=== PATIENT | male | born 1960 | race Caucasian/White ===

== ENCOUNTER 2019-07-20 13:06 | Day surgery (SDC) | payer OTHER ==
[2019-07-16 16:06] VITALS: BMI 29.8
[~2019-07-20 13:06] MED LIST: ACETAMINOPHEN 325 MG TABLET (FP) PO PRN; ONDANSETRON 4 MG/2 ML VIAL IVPUSH PRN; oxyCODONE HCL 5 MG TABLET PO PRN
[2019-07-20] MEDS ORDERED: PROPOFOL 20 ML ONE (14:31)
[2019-07-20] MEDS ORDERED: MIDAZOLAM HCL 2 MG/2 ML SINGLE DOSE VIAL ONE (14:31)
[2019-07-20] MEDS ORDERED: DEXAMETHASONE SOD PHOSPHATE 4 MG/1 ML VIAL ONE (14:43)
--- NOTE | 2019-07-20 15:40 | OP ---
Operative Note - Note: Operative Date: 07/20/19 Pre-Operative Diagnosis: Left renal stone Operation: Left ESWL Findings: 4 mm mid and 4 mm low poles renal stones Post-Operative Diagnosis: Same as Pre-op Surgeon: Michael Leo Anesthesia: Fractional Estimated Blood Loss (mls): 0 Drains, Volume Out (mls): 0 Operative Report Dictated: Yes
[2019-07-20 15:55] VITALS: BP 116/78; PULSE 62; TEMP 97.8
--- NOTE | 2019-07-20 19:51 | OP ---
DATE OF OPERATION: 07/20/2019 PREOPERATIVE DIAGNOSIS: Left renal stone. POSTOPERATIVE DIAGNOSIS: Left renal stone. PROCEDURE: Left extracorporeal shock wave lithotripsy. ATTENDING: Yimi Allen MD ANESTHESIA: Fractional. DESCRIPTION OF OPERATION: The patient was brought in the operating room, placed in supine position on the operating room table. Ultrasonography and fluoroscopy were performed. Two stones in the left kidney were identified, each measuring 4 mm. One was in the mid pole; one was in the lower pole. At this point, anesthesia was administered, and shock wave lithotripsy was started; 1250 impulses at 17 joules of power were administered to each stone. Excellent fragmentation was noted. The patient tolerated the procedure very well. The disposition of the patient was to the recovery room. YIMI ALLEN M.D. /[id number]
== END 2019-07-20 16:10 | disposition home or self-care (01) ==
LOC: JASU-SURG 13:06
PROVIDERS: ATTEND Urology
PROC: 0TF4XZZ Fragmentation in Left Kidney Pelvis, External Approach (ICD-10-PCS; principal; 2019-07-20 14:45)
DX: N20.0 Calculus of kidney (principal)

== ENCOUNTER 2019-08-03 07:30 | Day surgery (SDC) | payer OTHER ==
[2019-07-31 11:09] VITALS: BMI 25.0
[2019-08-03] MEDS ORDERED: PROPOFOL 20 ML ONE (09:45)
[2019-08-03] MEDS ORDERED: MIDAZOLAM HCL 2 MG/2 ML SINGLE DOSE VIAL ONE (09:46)
[2019-08-03] MEDS ORDERED: oxyCODONE HCL 5 MG TABLET PO PRN (10:01)
[2019-08-03] MEDS ORDERED: ONDANSETRON 4 MG/2 ML VIAL IVPUSH PRN (10:01)
[2019-08-03] MEDS ORDERED: ACETAMINOPHEN 325 MG TABLET (FP) PO PRN (10:01)
--- NOTE | 2019-08-03 10:22 | OP ---
Operative Note - Note: Operative Date: 08/03/19 Pre-Operative Diagnosis: Right renal stone Operation: Right ESWL Findings: 7 mm mid pole Right renal stone Post-Operative Diagnosis: Same as Pre-op Surgeon: Michael Leo Anesthesia: Fractional Estimated Blood Loss (mls): 0 Drains, Volume Out (mls): 0 Operative Report Dictated: Yes
[2019-08-03 11:46] VITALS: BP 111/70; PULSE 64; TEMP 97.5
--- NOTE | 2019-08-03 22:42 | OP ---
DATE OF OPERATION: 08/03/2019 PREOPERATIVE DIAGNOSIS: Right renal stone. POSTOPERATIVE DIAGNOSIS: Right renal stone. PROCEDURE: Right extracorporeal shock wave lithotripsy. ATTENDING: Yimi Allen MD ANESTHESIA: Fractional. DESCRIPTION OF OPERATION: Patient was brought in the operating room and placed in supine position on the operating room table. Ultrasonography and fluoroscopy were performed. A right-sided, mid-pole, 7-mm stone was identified. Anesthesia and preoperative antibiotics were then administered. Shock wave lithotripsy was then started; 2500 impulses at 17 joules of power were administered to the stone with excellent fragmentation of the stone noted under real-time ultrasonography and fluoroscopy. There were no complications noted. The patient tolerated the procedure very well. YIMI ALLEN M.D. SE/[id number]
== END 2019-08-03 11:48 | disposition home or self-care (01) ==
LOC: JASU-SURG 07:30
PROVIDERS: ATTEND Urology
PROC: 0TF3XZZ Fragmentation in Right Kidney Pelvis, External Approach (ICD-10-PCS; principal; 2019-08-03 09:30)
DX: N20.0 Calculus of kidney (principal)